=== PATIENT | male | born 1975 | race Two or more races ===

== ENCOUNTER 2020-05-21 04:58 | Emergency (ER) | payer SELFPAY ==
[~2020-05-21] VITALS: Ht 182.9 cm; Wt 117.9 kg
[~2020-05-21 04:58] MED LIST: CYCL5TAB89 PO; HYDR25TA4 PO; LIS20T PO; MET50T PO; Nifedipine PO
[2020-05-21] MEDS ORDERED: DEXTROSE (50%) 50ML SYRG IV ONE (04:59)
[2020-05-21] MEDS ORDERED: EPINEPHrine HCL 1 MG/10 ML SYRG IV ONE (04:59)
[2020-05-21] MEDS ORDERED: SODIUM BICARBONATE 8.4% INJ 50ML SYRINGE IV ONE (04:59)
[2020-05-21 05:01] VITALS: BP 0/0
== END 2020-05-21 10:32 ==
LOC: ER 04:58 → EDBD 04:58 → ER 10:32
DX: I46.9 Cardiac arrest, cause unspecified (principal); S11.93XA Puncture wound without foreign body of unspecified part of neck, initial encounter; S31.030A Puncture wound without foreign body of lower back and pelvis without penetration into retroperitoneum, initial encounter; S31.139A Puncture wound of abdominal wall without foreign body, unspecified quadrant without penetration into peritoneal cavity, initial encounter; W33.01XA Accidental discharge of shotgun, initial encounter; Y93.89 Activity, other specified; Y92.89 Other specified places as the place of occurrence of the external cause; Y99.2 Volunteer activity
CPT/HCPCS: 71045; 92950; 99291; J0171; J7042